=== PATIENT | female | born 1980 | race Caucasian/White ===

== ENCOUNTER 2016-11-18 03:40 | Emergency (ER) | payer OTHER ==
[~2016-11-18 03:40] MED LIST: ALBUTEROL17 GM INH; AMOXICILLIN PO; BENZONATATE PO; CELEXA; EFFEXOR PO; ENABLEX7.5 MG PO; ERYTHROMYCIN B500 MG PO; FIORICET 50-321 EACH PO; IBUPROFEN PO; LORTAB 5/500 TA1 TA2; METOPROLOL TAR25 MG PO; MOTRIN600 MG PO; TOPROL XL PO; ZITHROMAX PO
== END 2016-11-18 04:00 | disposition left against medical advice (07) ==
LOC: CED 03:40
DX: Z53.21 Procedure and treatment not carried out due to patient leaving prior to being seen by health care provider (principal)

== ENCOUNTER 2016-11-18 15:00 | Emergency (ER) | payer OTHER ==
--- NOTE | ~2016-11-18 | CR133 ---
[facility] A Service of [facility] & [facility] RADIOLOGY TEXT RESULTS PATIENT: PERLA LEDEZMA LOCATION: CFTX : 84 UNIT #: [id number] AGE: [address]: Radha Zee APRN SEX: F ORDER DR: [id number] [facility] [address] [place], [place] [address] [id number] E MR#: [id number] Acc #: [id number] NAME: PERLA YOO. : 1980 SEX: F STUDY DATE/TIME: 11/18/2016 14:52 UNIT: [facility] ROOM: STUDY DESCRIPTION: CR Forearm 2 View Rt Attending Physician: Radha Zee A.P.R.N. Ordering Physician: Ed Dakota Clarke M.D. Primary Care Physician: Kennedy Montilla M.D. MEDICAL IMAGING REPORT This report is preliminary unless electronic signature is present EXAM Right forearm, 3 views. HISTORY Fell on arm today. FINDINGS Bony elements are intact and in normal alignment. No fractures are identified. CONCLUSION Negative. Dictated by... Paulo Huffman M.D. THIS IS AN ELECTRONICALLY VERIFIED REPORT Paulo Huffman M.D. at 11/20/2016 12:00 PM Yusra TD: 11/18/2016 16:58 JOB #: [id number] MEDICAL IMAGING REPORT Page 1 of 1 COPY
--- NOTE | ~2016-11-18 | CR150 ---
[facility] A Service of [facility] & [facility] RADIOLOGY TEXT RESULTS PATIENT: PERLA LEDEZMA LOCATION: CFTX : 82 UNIT #: [id number] AGE: [address]: Radha Zee APRN SEX: F ORDER DR: [id number] [facility] [address] [place], [place] [address] [id number] E MR#: [id number] Acc #: [id number] NAME: PERLA YOO : 1980 SEX: F STUDY DATE/TIME: 11/18/2016 14:53 UNIT: [facility] ROOM: STUDY DESCRIPTION: CR Hip Min 2 Views Lt Attending Physician: Radha Zee A.P.R.N. Ordering Physician: Ed Dakota Clarke M.D. Primary Care Physician: Kennedy Montilla M.D. MEDICAL IMAGING REPORT This report is preliminary unless electronic signature is present EXAM AP pelvis and left hip. HISTORY Fell today with hip pain. FINDINGS An AP view of the pelvis and an oblique view of the left hip are submitted. The bony elements are intact and in normal alignment. No fractures are identified. CONCLUSION Negative. Dictated by... Paulo Huffman M.D. THIS IS AN ELECTRONICALLY VERIFIED REPORT Paulo Huffman M.D. at 11/20/2016 12:00 PM BERTA/aby TD: 11/18/2016 17:00 JOB #: [id number] MEDICAL IMAGING REPORT Page 1 of 1 COPY
--- NOTE | ~2016-11-18 | CR282 ---
[facility] A Service of [facility] & [facility] RADIOLOGY TEXT RESULTS PATIENT: PERLA LEDEZMA LOCATION: CFTX : 84 UNIT #: [id number] AGE: [address]: Radha Zee APRN SEX: F ORDER DR: [id number] [facility] [address] [place], [place] [address] [id number] E MR#: [id number] Acc #: [id number] NAME: PERLA YOO : 1980 SEX: F STUDY DATE/TIME: 11/18/2016 14:52 UNIT: [facility] ROOM: STUDY DESCRIPTION: CR Wrist Min 3 View Rt Attending Physician: Radha Zee A.P.R.N. Ordering Physician: Ed Dakota Clarke M.D. Primary Care Physician: Kennedy Montilla M.D. MEDICAL IMAGING REPORT This report is preliminary unless electronic signature is present EXAM Right wrist, 3 views. HISTORY Fell on right wrist with pain, fell today. FINDINGS 3 views are submitted. Bony elements are intact. Joint spaces and articular surfaces are preserved. No fractures are identified. CONCLUSION Negative Dictated by... Paulo Huffman M.D. THIS IS AN ELECTRONICALLY VERIFIED REPORT Paulo Huffman M.D. at 11/20/2016 12:00 PM BERTA/ojrge TD: 11/18/2016 16:59 JOB #: [id number] MEDICAL IMAGING REPORT Page 1 of 1 COPY
== END 2016-11-18 16:25 | disposition home or self-care (01) ==
LOC: CFTX 15:00
DX: S63.501A Unspecified sprain of right wrist, initial encounter (principal); S70.02XA Contusion of left hip, initial encounter; Z88.1 Allergy status to other antibiotic agents; W01.0XXA Fall on same level from slipping, tripping and stumbling without subsequent striking against object, initial encounter
CPT/HCPCS: 29125; 73090; 73110; 73502; 99284